=== PATIENT | female | born 1970 | race Caucasian/White ===

== ENCOUNTER 2018-11-29 17:47 | Emergency (ER) | payer OTHER ==
[~2018-11-29] VITALS: Ht 157.5 cm; Wt 111.1 kg
[2018-11-29 20:32] VITALS: BP 116/60
== END 2018-11-29 20:32 | disposition home or self-care (01) ==
LOC: ED 17:47
DX: M54.41 Lumbago with sciatica, right side (principal); Z90.49 Acquired absence of other specified parts of digestive tract; Z90.89 Acquired absence of other organs
CPT/HCPCS: J1885